=== PATIENT | male | born 1950 | race Caucasian/White ===

== ENCOUNTER → 2016-07-27 | Outpatient (CLI) | payer MEDICARE, OTHER ==
--- NOTE | 2016-07-27 09:15 | US ---
EXAMINATION TYPE: US duplex aorta DATE OF EXAM: 07/27/2016 9:03 AM COMPARISON: See PACS CLINICAL HISTORY: AAA Screening Z13.9. EXAM MEASUREMENTS: Abdominal Aorta: Proximal: 2.0cm Mid: 1.7cm Distal: 1.3cm Bifurcation: Right 1.3cm Left 1.0cm IMPRESSION: No AAA
== END | disposition home or self-care (01) ==
LOC: RADUSWWP 08:42
PROVIDERS: ATTEND Family Medicine
DX: Z13.9 Encounter for screening, unspecified (principal)
CPT/HCPCS: 93979

== ENCOUNTER → 2017-05-20 | Outpatient (CLI) | payer MEDICARE, OTHER ==
[2017-05-20 16:07] LABS: Basophils % (A) 1 %; CH 30.4; CHCM 32.9; Eosinophils # (A) 0.2 k/uL (0-0.7); Eosinophils % (A) 4 %; HCT 46.5 % (39.0-53.0); HDW 2.45; Luc # (Auto) 0.12; Luc % (Auto) 2; Lymphocytes # (A) 1.3 k/uL (1.0-4.8); Lymphocytes % (A) 24 %; MCHC 32.3 g/dL (31.0-37.0); MCV 93.1 fL (80.0-100.0); Mean Platelet Volume 7.9; Monocytes # (A) 0.5 k/uL (0-1.0); Monocytes % (A) 8 %; Neutrophils # (A) 3.3 k/uL (1.3-7.7); Neutrophils % (A) 62 %; RDW 14.4 % (11.5-15.5); WBC 5.4 k/uL (3.8-10.6); WBC (Perox) 5.43
[2017-05-20 16:29] LABS: ALT 35 U/L (21-72); AST 22 U/L (17-59); Alkaline Phosphatase 65 U/L (38-126); Anion Gap 9 mmol/L; Blood Urea Nitrogen 15 mg/dL (9-20); Calcium 10.1 mg/dL (8.4-10.2); Carbon Dioxide 28 mmol/L (22-30); Chloride 104 mmol/L (98-107); Glucose 85 mg/dL (74-99); Non-African American GFR(MDRD) >60 (>60 ml/min/1.73 sqM); Potassium 4.2 mmol/L (3.5-5.1); Sodium 141 mmol/L (137-145); Total Bilirubin 0.3 mg/dL (0.2-1.3)
--- NOTE | 2017-05-20 17:43 | CT ---
EXAMINATION TYPE: CT abdomen pelvis w con DATE OF EXAM: 05/20/2017 COMPARISON: 03/12/2013 HISTORY: History of diverticulitis, left lower quadrant pain. CT DLP: 1323.00 mGycm Automated exposure control for dose reduction was used. TECHNIQUE: Helical acquisition of images was performed from the lung bases through the pelvis. CONTRAST: Performed with Oral Contrast and with IV Contrast, patient injected with 100 mL of Omnipaque 300. FINDINGS: Lung bases are clear. There is no pleural effusion. Liver spleen pancreas gallbladder appear normal. Bile ducts are not dilated. There is no adrenal mass. Kidneys show satisfactory contrast opacification. There is no hydronephrosi s. Ureters are not dilated. There are some mild inflammatory changes around the proximal sigmoid colon. There are numerous sigmoi d diverticula. The prostate is markedly enlarged. Prostate measures 6 x 7 cm. Bladder otherwise diste nds smoothly. There is no ascites. I see no intestinal wall thickening. There is no sign of a bowel o bstruction. The bony structures are intact. Appendix is not seen. There is no sign of appendicitis. IMPRESSION: THERE IS EVIDENCE OF MILD FOCAL DIVERTICULITIS IN THE PROXIMAL SIGMOID COLON THAT IS NEW COMPARED TO THE OLD EXAM. THERE IS CLEARING OF THE DIVERTICULITIS IN THE MID SIGMOID COLON COMPARED TO OLD EXAM. NO SIGN OF ABSCESS. ENLARGED PROSTATE.
== END | disposition home or self-care (01) ==
LOC: RADCTMAIN 15:37
PROVIDERS: ATTEND Physician Assistant
DX: K57.32 Diverticulitis of large intestine without perforation or abscess without bleeding (principal); N40.0 Benign prostatic hyperplasia without lower urinary tract symptoms
CPT/HCPCS: 80053; 85025; 74177; 36415; Q9967

== ENCOUNTER → 2017-12-12 | Outpatient (CLI) | payer MEDICARE, OTHER ==
--- NOTE | 2017-12-12 14:04 | CT ---
EXAMINATION TYPE: CT abdomen pelvis w con DATE OF EXAM: 12/12/2017 COMPARISON: NONE HISTORY: Diverticulitis CT DLP: 1541 mGycm CONTRAST: CT scan of the abdomen and pelvis is performed with Oral Contrast and with IV Contrast, patient injec nathan with 100 ml mL of Isovue 300. FINDINGS: LUNG BASES-: No visible nodule. No infiltrate. LIVER/GB: No calcified gallstones. No space occupying hepatic lesion. Biliary tree is of normal ca liber. PANCREAS: No inflammation. No distinct mass. SPLEEN: No splenic enlargement. No lesion seen. ADRENALS: No nodule. No thickening. KIDNEYS/BLADDER: No hydronephrosis. No nephrolithiasis. No distinct renal mass. Urinary bladder g rossly unremarkable. BOWEL: There is wall thickening and perisigmoid inflammatory change compatible with acute diverticuli tis. There is no evidence for perforation or abscess. Remaining small and large bowel are of the norm al caliber and free of additional inflammatory process. Fat-containing inguinal hernia small in size. GENITAL ORGANS: The prostate gland is enlarged measuring 8.3 x 6.4 x 6.6 cm. LYMPH NODES: No greater than 1cm abdominal or pelvic lymph nodes are appreciated. AORTA: No significant abnormality. OSSEOUS STRUCTURES: No significant abnormality is seen. OTHER: No significant additional abnormality is seen. IMPRESSION: 1. Uncomplicated acute sigmoid diverticulitis. 2. Prostate gland enlargement.
== END | disposition home or self-care (01) ==
LOC: RADCTMAIN 11:37
PROVIDERS: ATTEND Physician Assistant
DX: K57.32 Diverticulitis of large intestine without perforation or abscess without bleeding (principal); N40.0 Benign prostatic hyperplasia without lower urinary tract symptoms
CPT/HCPCS: 82565; 84520; 74177; 36415; Q9967

== ENCOUNTER → 2018-01-20 | Outpatient (CLI) | payer MEDICARE, OTHER ==
--- NOTE | 2018-01-20 09:57 | US ---
EXAMINATION TYPE: US abdomen complete DATE OF EXAM: 01/20/2018 COMPARISON: 12/12/2017 CLINICAL HISTORY: 67-year-old male R10.11 abdominal pain. 1 episode of abdomen pain 6 weeks ago that lasted about 1 week, 1 episode of nausea TECHNIQUE: Multiple sonographic images of the abdomen are obtained. FINDINGS: EXAM MEASUREMENTS: Liver Length: 13.1 cm Gallbladder Wall: 0.2 cm CBD: 0.5 cm Spleen: 10.0 cm Right Kidney: 9.5 x 6.4 x 4.6 cm Left Kidney: 10.1 x 5.2 x 4.8 cm Pancreas: Suboptimal visualization of the pancreatic head and tail secondary to shadowing from bowel gas. Liver: wnl Gallbladder: wnl Evidence for sonographic Cerda's sign: no CBD: visualized portions wnl, limited by overlying bowel gas Spleen: visualized portions wnl, limited by overlying bowel gas Right Kidney: No hydronephrosis. Left Kidney: 0.5cm echogenic focus in the upper pole. No hydronephrosis. Upper IVC: wnl Abd Aorta: visualized portions wnl, proximal portion limited by overlying midline bowel gas IMPRESSION: 1. Tiny 5 mm nonobstructive calculus upper pole left kidney. No hydronephrosis. 2. Suboptimal visualization of the pancreas. 3. Otherwise, no specific abnormality seen.
== END | disposition home or self-care (01) ==
LOC: RADUSWWP 07:44
PROVIDERS: ATTEND Family Medicine
DX: N20.0 Calculus of kidney (principal)
CPT/HCPCS: 76700

== ENCOUNTER → 2020-09-08 | Outpatient (CLI) | payer MEDICARE ==
--- NOTE | 2020-09-08 17:40 | CT ---
EXAMINATION TYPE: CT abdomen pelvis w con DATE OF EXAM: 09/08/2020 COMPARISON: 12/12/2017 HISTORY: 69-year-old male R10.9, abdominal pain, Epigastric pain. The technologist reports that the p atient is recently taking medication for diverticulitis. TECHNIQUE: Contiguous axial scanning of the abdomen and pelvis following administration of 100 ml Iso leo 300 IV contrast. Delayed images through the kidneys and coronal/sagittal reconstructions perform ed. CT DLP: 937.8 mGycm Automated exposure control for dose reduction was used. FINDINGS: Heart normal size without pericardial effusion. Some strandy atelectasis in the lower lungs without p leural effusion. No focal liver lesion or biliary ductal dilatation. Portal venous system is patent. Gallbladder, adrenal glands, kidneys, spleen, and pancreas appear within normal limits. No dilated small bowel, free fluid, or free air. No mesenteric or retroperitoneal lymphadenopathy. Normal appendix. Scattered liquid stool seen throughout the colon without significant stool burden. L eft-sided colonic diverticulosis involving the lower half of the descending colon and throughout the sigmoid colon. There is mild to moderate wall thickening along the proximal sigmoid with moderate foc al surrounding fat stranding, axial image 66 through 70. Mild circumferential bladder wall thickening. Prostate gland is markedly enlarged measuring up to 6.2 cm wide but up to 8.9 cm craniocaudal with lobulated impression into the bladder base. No abnormal fluid collection in the pelvis or pelvic lymphadenopathy. Bones: Right L5 hemisacralization. Mild degenerative disc disease throughout the mid and lower lumbar spine. Hypertrophic facet arthropathy. Trace grade 1 retrolisthesis L1-L2 and L2-L3. IMPRESSION: 1. THE TECHNOLOGIST REPORTS THAT THE PATIENT IS RECENTLY TAKING MEDICATION FOR DIVERTICULITIS. THE EX AM IS POSITIVE FOR ACUTE DIVERTICULITIS ALONG THE PROXIMAL SIGMOID COLON WITH MILD TO MODERATE SURROU NDING INFLAMMATION. PLEASE ENSURE THAT THE PATIENT IS CONTINUING APPROPRIATE TREATMENT/ANTIBIOTIC THE RAPY. NO ABSCESS OR FREE AIR. 2. MARKED PROSTATOMEGALY AT 8.9 CM CRANIOCAUDAL. SOFT TISSUE IMPRESSES INTO THE BLADDER BASE. FINDING S SUGGEST BPH. CORRELATE WITH PSA TO EXCLUDE UNDERLYING PROSTATE CANCER. CIRCUMFERENTIAL BLADDER WALL THICKENING LIKELY CHRONIC BLADDER WALL HYPERTROPHY.
== END ==
LOC: RADCTMAIN 14:44
PROVIDERS: ATTEND Family Medicine
DX: R10.9 Unspecified abdominal pain (principal); K57.92 Diverticulitis of intestine, part unspecified, without perforation or abscess without bleeding; N40.0 Benign prostatic hyperplasia without lower urinary tract symptoms
CPT/HCPCS: 82565; 84520; 74177; 36415; Q9967

== ENCOUNTER → 2021-06-22 | Outpatient (CLI) | payer MEDICARE ==
--- NOTE | 2021-06-22 12:40 | MM ---
Reason for exam: clinical finding. History: Family history of breast cancer in sister at age 50. Indicated problem(s): lump or thickening and pain in the left breast. Physical Findings: Nurse did not find any significant physical abnormalities on exam. MG 3D Diag Mammo W/Cad ALEKSANDR Bilateral CC and MLO view(s) were taken. There are scattered fibroglandular densities. Left breast greater than right breast flame shaped subareolar density compatible with benign asymmetric gynecomastia. A small intramammary lymph node also noted in the upper outer quadrant on each side. These results were verbally communicated with the patient and result sheet given to the patient on 06/22/21. ASSESSMENT: Benign, BI-RAD 2 RECOMMENDATION: Clinical management of both breasts. Manage on a clinical basis with regard to gynecomastia.
== END ==
LOC: RADMAMWWP 08:59
PROVIDERS: ATTEND Family Medicine
DX: N63.20 Unspecified lump in the left breast, unspecified quadrant (principal)
CPT/HCPCS: 77066; G0279; 77062

== ENCOUNTER → 2023-10-23 | Outpatient (CLI) | payer MEDICARE ==
--- NOTE | 2023-10-23 11:35 | XR ---
EXAMINATION TYPE: XR shoulder complete BILAT DATE OF EXAM: 10/23/2023 10:46 AM CLINICAL INDICATION:Male, 72 years old with history of M24.9 SHOULDER BILAT; [facility] COMPARISON: None TECHNIQUE: XR shoulder complete BILAT; examined in AP, internally rotated and scapular Y projections. FINDINGS: No evidence of acute osseous pathology, joint dislocation, or soft tissue swelling. The remaining po rtions of the visualized chest are unremarkable. Mild degeneration changes of the acromion and dista l clavicle. IMPRESSION: 1. No acute osseous pathology. 2. Mild shoulder osteoarthrosis bilaterally.
== END | disposition home or self-care (01) ==
LOC: RADXRMAIN 10:23
PROVIDERS: ATTEND Family Medicine
DX: M19.011 Primary osteoarthritis, right shoulder (principal); M19.012 Primary osteoarthritis, left shoulder; M24.811 Other specific joint derangements of right shoulder, not elsewhere classified; M24.812 Other specific joint derangements of left shoulder, not elsewhere classified